=== PATIENT | male | born 1960 | race Two or more races ===

== ENCOUNTER 2022-03-15 13:41 | Day surgery (SDC) | payer MEDICARE ==
[~2022-03-15] VITALS: Ht 170.2 cm; Wt 99.6 kg
[~2022-03-15 13:41] MED LIST: BUPR150T2 PO; CITA20 PO; CYCL10 PO; IBUP800 PO; NAPR500 PO; OMEP20ER PO; TEMA15 PO
== END 2022-03-15 15:50 | disposition home or self-care (01) ==
LOC: ORSCSDS 13:41
PROVIDERS: Surgery
PROC: 0DJD8ZZ Inspection of Lower Intestinal Tract, Via Natural or Artificial Opening Endoscopic (ICD-10-PCS; principal; 2022-03-15 14:45)
DX: Z12.11 Encounter for screening for malignant neoplasm of colon (principal); Z86.010 Personal history of colon polyps
CPT/HCPCS: J0330; J0461; J2405; J2704; J7120